=== PATIENT | female | born 1985 | race Caucasian/White ===

== ENCOUNTER 2019-12-20 18:18 | Emergency (ER) | payer MEDICAID ==
--- NOTE | 2019-12-20 18:42 | ED ---
Psychiatric Complaint - HPI Summary HPI Summary: Patient is a 34 y/o F presenting to the ED for a chief complaint of substance use. Per triage, patient was dropped off at [facility] for alcohol intoxication, SI, and HI. Patient admits SI and HI, stating she wants to kill her brother. She reports a suicide attempt 2 years ago by overdosing on fentanyl. She attempted to leave [facility] twice, but insists she cannot be allowed to leave [facility]. She was previously treated for 30 days for substance abuse at [facility] and released on 12/20/19. After leaving the treatment facility, she drank over half a 375 ml bottle of vodka. Patient has back pain from a prior spinal fracture at baseline. She denies taking any other drugs on 12/20/19, but admits a history of taking "all drugs" and tobacco use. Patient notes taking medications for mental health issues, which she states are not working. Medications reviewed. Allergies noted. - History Of Current Complaint Chief Complaint: EDSubstanceAbuse Time Seen by Provider: 12/20/19 18:36 Hx Obtained From: Patient, EMS Onset/Duration: Sudden Onset, Still Present Timing: Constant Severity Initially: Moderate Severity Currently: Moderate Character: Depressed Aggravating Factor(s): Alcohol Use Alleviating Factor(s): Nothing Associated Signs And Symptoms: Positive: Negative Related History: Positive For: Prior Psychiatric Issues Has Suicidal: Reports: Thoughts Has Homicidal: Reports: Thoughts Ingestion History: Type/Name Of Drug - Alcohol, Amount Ingested - Over half of a 375 ml vodka bottle - Allergies/Home Medications Home Medications: Home Medications Acetaminophen [Acetaminophen 8 Hour] 650 mg PO Q6HR PRN 12/20/19 [History Confirmed 12/20/19] Amitriptyline TAB* [Elavil TAB*] 75 mg PO BEDTIME 12/20/19 [History Confirmed ] Bismuth Subsalicylate* [Peptic Relief*] 15 ml PO Q6HR PRN 12/20/19 [History Confirmed 12/20/19] Calcium Carbonate CHEW TAB* [Tums*] 500 mg PO Q6HR PRN 12/20/19 [History Confirmed 12/20/19] Dicyclomine CAP* [Bentyl CAP*] 10 mg PO Q6HR PRN 12/20/19 [History Confirmed ] Docusate CAP* [Colace Cap*] 100 mg PO BID PRN 12/20/19 [History Confirmed ] Escitalopram * [Lexapro 10 mg (NF)] 10 mg PO DAILY 12/20/19 [History Confirmed 12/20/19] Gabapentin CAP(*) [Neurontin 300 CAP(*)] 600 mg PO TID 12/20/19 [History Confirmed 12/20/19] Ibuprofen TAB* [Motrin TAB* 600 MG] 600 mg PO Q6H PRN 12/20/19 [History Confirmed 12/20/19] LORazepam [Lorazepam] 2 mg INJ DAILY PRN 12/20/19 [History Confirmed 12/20/19] Loperamide CAP* [Imodium CAP*] 2 mg PO Q2HR PRN 12/20/19 [History Confirmed ] Magnesium Hydroxide LIQ* [Milk of Magnmakenzie LIQ*] 30 ml PO Q6H PRN 12/20/19 [ History Confirmed 12/20/19] Multivitamins/Minerals TAB* [Thera M Plus TAB*] 1 tab PO DAILY 12/20/19 [ History Confirmed 12/20/19] Nicotine PATCH 21 MG/24 HR* 21 mg TRANSDERM DAILY 12/20/19 [History Confirmed ] QUEtiapine TAB* [Seroquel 100 MG *] 100 mg PO BEDTIME 12/20/19 [History Confirmed 12/20/19] Ranitidine TAB (NF) [Zantac TAB (NF)] 150 mg PO BID 12/20/19 [History Confirmed 12/20/19] Thiamine TAB* [Vitamin B-1 TAB*] 100 mg PO DAILY 12/20/19 [History Confirmed ] Trimethobenzamide IM* [Tigan IM*] 200 mg IM ONCE 12/20/19 [History Confirmed ] busPIRone TAB* [Buspar TAB*] 10 mg PO TID 12/20/19 [History Confirmed 12/20/19] cloNIDine TAB* [Catapres 0.1 MG TAB*] 0.1 mg PO DAILY 12/20/19 [History Confirmed 12/20/19] diPHENhydraMINE PO* [Benadryl PO 25 MG TAB*] 25 mg PO Q6HR PRN 12/20/19 [ History Confirmed 12/20/19] hydrOXYzine HCL TAB* [Atarax TAB 50 MG *] 50 mg PO Q8HR PRN 12/20/19 [History Confirmed 12/20/19] levETIRAcetam TAB* [Keppra TAB*] 1,000 mg PO BID 12/20/19 [History Confirmed ] PMH/Surg Hx/FS Hx/Imm Hx Previously Healthy: Yes Endocrine/Hematology History: Denies: Hx Diabetes Sensory History: Denies: Hx Legally Blind, Hx Deafness Opthamlomology History: Denies: Hx Legally Blind EENT History: Denies: Hx Deafness Psychiatric History: Reports: Hx Suicide Attempt, Hx Substance Abuse - Surgical History Surgical History: None Surgery Procedure, Year, and Place: None Infectious Disease History: No Infectious Disease History: Denies: Traveled Outside the [place] in Last 30 Days - Family History Known Family History: Negative: Diabetes, Renal Disease - Social History Occupation: Unemployed Lives: Alone Hx Substance Use: Yes Substance Use Type: Reports: Other - Several drugs Substance Use Comment - Amount & Last Used: Fentanyl Hx Tobacco Use: Yes Smoking Status (MU): Current Every Day Smoker Type: Cigarettes Review of Systems Positive: Myalgia - Back, at baseline Psychological: Other - Positive SI and HI Positive: Depressed All Other Systems Reviewed And Are Negative: Yes Physical Exam - Summary Physical Exam Summary: Constitutional: Well-developed, Well-nourished, Alert. (-) Distressed Skin: Warm, Dry HENT: Normocephalic; Atraumatic Eyes: Conjunctiva normal Neck: Musculoskeletal ROM normal neck. (-) JVD, (-) Stridor, (-) Tracheal deviation Cardio: Rhythm regular, rate normal, Heart sounds normal; Intact distal pulses; Radial pulses are 2+ and symmetric. (-) Murmur Pulmonary/Chest wall: Effort normal. (-) Respiratory distress, (-) Wheezes, (-) Rales Abd: Soft, (-) tenderness, (-) Distension, (-) Guarding, (-) Rebound Musculoskeletal: (-) Edema Lymph: (-) Cervical adenopathy Neuro: Alert, Oriented x3. Slurred speech. Psych: Tearful. Triage Information Reviewed: Yes Vital Signs On Initial Exam: Initial Vitals Temp Pulse Resp BP Pulse Ox 98.7 F 97 19 138/79 98 12/20/19 18:21 12/20/19 18:21 12/20/19 18:21 12/20/19 18:21 12/20/19 18:21 Vital Signs Reviewed: Yes Procedures - Sedation Patient Received Moderate/Deep Sedation with Procedure: No Diagnostics - Vital Signs Vital Signs Temp Pulse Resp BP Pulse Ox 12/20/19 18:21 98.7 F 97 19 138/79 98 - Laboratory Result Diagrams: 12/20/19 19:10 12/20/19 19:10 Lab Statement: Any lab studies that have been ordered have been reviewed, and results considered in the medical decision making process. Course/Dx - Course Course Of Treatment: Patient is here with alcohol intoxication, suicidal ideation, and homicidal ideation. Patient was just discharged today from a month-long rehabilitation facility. Patient got a bottle of alcohol on the way home home and started drinking it. Patient has an alcohol level of 196. Patient became agitated and required 5 g of Haldol, 50 mg of Benadryl, and 50 g of Versed. Patient was signed out to Dr. Garsia pending sobriety and mental health evaluation - Differential Dx/Clinical Impression Provider Diagnosis: Alcohol intoxication, Homicidal ideation, Suicidal ideation Discharge ED - Sign-Out/Discharge Documenting (check all that apply): Sign-Out Patient Signing out patient TO: Harrison Garsia - Patient is a sign-out at 22:[address] Harrison Garsia MD from Dr. Marlon Pimentel MD at shift change, pending sobriety, mental health evaluation, and disposition. - Discharge Plan Condition: Stable [facility]errals: [facility] [Outside] - Billing Disposition and Condition Condition: STABLE - Attestation Statements Document Initiated by Scribe: Yes Documenting Scribe: Yesica Arauz Provider For Whom Scribe is Documenting (Include Credential): Mralon Pimentel MD Scribe Attestation: Yesica Cedeno, scribed for Marlon Pimentel MD on 12/20/19 at 2141. Scribe Documentation Reviewed: Yes Provider Attestation: The documentation as recorded by the scribeYesica accurately reflects the service I personally performed and the decisions made by , Marlon Pimentel MD Status of Scribe Document: Viewed - Assessment for Patient Restraint Evaluation of the Patient's Immediate Situation: Dr. Harrison Garsia chemically restrained the patient around 21:15 after the patient was displaying aggressive and hostile behavior by cursing and yelling at staff, and attempting to leave [facility]. Patient's Reaction to Intervention: Patient continues to display aggressive and hostile behavior. Patient's Medication and Behavioral Condition: Patient was given Benadryl 50 mg IM, Versed 5 mg IM, and Haldol [address] Harrison Garsia. Evaluate Need for Continued Restraint: Continue
[2019-12-20] MEDS ORDERED: Haloperidol INJ IV/IM* 5 MG/ML AMP IM ONE (18:54)
[2019-12-20] MEDS ORDERED: diPHENhydraMINE IV* 50 MG/ML 1 ml VIAL (BENADRYL) IM ONE (18:55)
[2019-12-20 19:16] LABS: ABS Basophils 0.1 10^3/ul (0-0.2); ABS Eosinophils 0.1 10^3/ul (0-0.6); ABS Lymphocytes 3.5 10^3/ul (1.0-4.8); ABS Monocytes 0.4 10^3/ul (0-0.8); ABS Neutrophils 3.5 10^3/ul (1.5-7.7); Eosinophil % 1.5 %; Hematocrit 42 % (35-47); Hemoglobin 14.3 g/dL (12.0-16.0); Lymphocyte % 46.4 %; Mean Corpuscular HGB Conc 34 g/dL (31-36); Mean Corpuscular Hemoglobin 31 pg (27-31); Mean Corpuscular Volume 90 fL (80-97); Nucleated Red Blood Cells % 0.2; Platelet Count 249 10^3/uL (150-450); Red Blood Count 4.62 10^6 /uL (3.70-4.87); Red Cell Distribution Width 13 % (10-15); White Blood Count 7.6 10^3/uL (3.5-10.8)
[2019-12-20] MEDS ORDERED: Midazolam* 1 MG/ML 2 ML VIAL (2 MG) IM ONE (19:16)
[2019-12-20] MEDS ORDERED: Midazolam concentrated* 5 MG/ML 1 ml VIAL ONE (19:19)
[2019-12-20 19:34] LABS: ALT 85 U/L (7-52); AST 30 U/L (13-39); Albumin 4.3 g/dL (3.2-5.2); Albumin/Globulin Ratio 1.3 (1-3); Alkaline Phosphatase 107 U/L (34-104); Anion Gap 11 mmol/L (2-11); BUN/Creatinine Ratio 16.2 (8-20); Blood Urea Nitrogen 11 mg/dL (6-24); CO2 Carbon Dioxide 23 mmol/L (22-32); Calcium 9.5 mg/dL (8.6-10.3); Chloride 105 mmol/L (101-111); EGFR African American 119.1 (>60); EGFR Non-African American 98.5 (>60); Globulin 3.3 g/dL (2-4); Glucose 120 mg/dL (70-100); Potassium 3.4 mmol/L (3.5-5.0); Sodium 139 mmol/L (135-145); Total Protein 7.6 g/dL (6.4-8.9)
[2019-12-20 19:41] LABS: HCG Pregnancy < 0.60 mIU/mL
[2019-12-20 19:51] LABS: Acetaminophen < 15 mcg/mL; Alcohol 196 mg/dL (<10); Salicylate < 2.50 mg/dL (<30)
--- NOTE | 2019-12-20 22:53 | ED ---
Progress - Progress Note Progress Note: The patient is a sign-out from Dr. Marlon Pimentel MD, to Dr. Harrison Garsia MD , at change of shift at 2200 on 12/20/2019, pending sobriety, MHE, and disposition. Patient is clinically sober at 2300. Patient sleeping during shift, awaiting MHE. The patient is a sign-out from Dr. Harrison Garsia MD, to Dr. Mikael Moreno DO, at change of shift at 0700 on 12/21/2019, pending MHE and disposition. Re-Evaluation - Re-Evaluation First Eval Re-Evaluation Time: 23:00 Comment: Patient clinically sober. Course/Dx - Course Course Of Treatment: The patient is a sign-out from Dr. Marlon Pimentel MD, to Dr. Harrison Garsia MD, at change of shift at 2200 on 12/20/2019, pending sobriety, MHE, and disposition. Patient is clinically sober at 2300. Patient sleeping during shift, awaiting MHE. The patient is a sign-out from Dr. Harrison Garsia MD, to Dr. Mikael Moreno DO, at change of shift at 0700 on 12/21, pending MHE and disposition. - Diagnoses Provider Diagnoses: Alcohol intoxication, Homicidal ideation, Suicidal ideation Discharge ED - Sign-Out/Discharge Documenting (check all that apply): Sign-Out Patient, Receiving Sign-Out Signing out patient TO: Dustin Moreno - Patient is a sign-out to Dr. Mikael Moreno DO, at 0700 on 12/21/2019, pending MHE and disposition. Receiving patient FROM: Marlon Pimentel - Patient is a sign-out from Dr. Marlon Pimentel MD, at 2200 on 12/20/2019, pending sobriety, MHE, and disposition. - Discharge Plan Condition: Stable Referrals: [facility] [Outside] - Billing Disposition and Condition Condition: STABLE - Attestation Statements Document Initiated by Scribe: Yes Documenting Scribe: Jagruti Oliva Provider For Whom Scribe is Documenting (Include Credential): Dr. Harrison Garsia MD Scribe Attestation: I, Jagruti Oliva, scribed for Dr. Harrison Garsia MD on 12/21/19 at 0644. Scribe Documentation Reviewed: Yes Provider Attestation: The documentation as recorded by the scribe, Jagruti Oliva accurately reflects the service I personally performed and the decisions made by me, Dr. Harrison Garsia MD Status of Scribe Document: Viewed Procedures - Sedation Patient Received Moderate/Deep Sedation with Procedure: No
[2019-12-20 22:59] LABS: Urine Appearance Clear; Urine Bilirubin Negative (Negative); Urine Blood Negative (Negative); Urine Color Yellow; Urine Glucose Negative (Negative); Urine Ketones Negative (Negative); Urine Nitrite Negative (Negative); Urine Protein Negative (Negative); Urine Specific Gravity 1.009 (1.010-1.030); Urine Urobilinogen Negative (Negative)
[2019-12-20 23:13] LABS: Urine Benzodiazepine Screen Presumptive Positive (None Detect); Urine Opiates Screen None Detected (None Detect)
[2019-12-21 07:41] VITALS: BP 117/83
--- NOTE | 2019-12-21 10:49 | ED ---
Progress - Progress Note Progress Note: The patient is signed out from Dr. Garsia upon shift change 12/21/2019 07:00 awaiting psychiatric evaluation and pending disposition. Re-Evaluation - Re-Evaluation First Eval Re-Evaluation Time: 10:46 Comment: Psychiatric clinical professor reviewed case with Dr. Blank, psychiatry. They will discharge the patient Course/Dx - Course Course Of Treatment: The patient is signed out from Dr. Garsia upon shift change 12/21/2019 07:00 awaiting psychiatric evaluation and pending disposition. Psychiatric clinical professor reviewed case with Dr. Blank, psychiatry. They will discharge the patient. - Diagnoses Provider Diagnoses: Depressive disorder, Homelessness Discharge ED - Sign-Out/Discharge Documenting (check all that apply): Patient Departure - Discharge Plan Condition: Stable Disposition: HOME Referrals: [facility] [Other] (YOU ARE BEING REFERRED TO [facility] FOR [facility]) [facility] [Outside] - Billing Disposition and Condition Condition: STABLE Disposition: Home - Attestation Statements Document Initiated by Scribe: Yes Documenting Scribe: Ashley Salomon Provider For Whom Scribe is Documenting (Include Credential): Mikael Moreno DO Scribe Attestation: IAshley, benjiibed for Mikael Moreno DO on 12/21/19 at 1151. Scribe Documentation Reviewed: Yes Provider Attestation: The documentation as recorded by the benjiibAshley blevins accurately reflects the service I personally performed and the decisions made by , Mikael Moreno DO Status of Scribe Document: Viewed
== END 2019-12-21 11:25 | disposition home or self-care (01) ==
LOC: ED 18:18
DX: R45.851 Suicidal ideations (principal); R45.850 Homicidal ideations; F32.9 Major depressive disorder, single episode, unspecified; F10.929 Alcohol use, unspecified with intoxication, unspecified; Z59.0 Homelessness; F17.210 Nicotine dependence, cigarettes, uncomplicated; Z79.899 Other long term (current) drug therapy
CPT/HCPCS: 36415; 80053; 80307; 80320; 80329; 81003; 84702; 85025; 96372; 99285; G0480; J1200; J1630; J2250

== ENCOUNTER 2020-01-05 11:05 | Emergency (ER) | payer MEDICAID ==
[2020-01-05] MEDS ORDERED: NS 0.9% 1000 ML** 1,000 ML IV ONE (11:40)
[2020-01-05] MEDS ORDERED: Ketorolac INJ* 30 MG/ML 1 ML VIAL IV PUSH ONE (11:40)
[2020-01-05] MEDS ORDERED: Lorazepam PYXIS KEY PRN (11:41)
[2020-01-05] MEDS ORDERED: LORazepam INJ* 2 MG/ML 1 ML VIAL IV PUSH ONE (11:41)
--- NOTE | 2020-01-05 11:46 | ED ---
Complex/Multi-Sys Presentation - HPI Summary HPI Summary: 34 year old F presenting to [facility] complains of bilateral forearm pain, vomiting , abdominal pain, scabs on bilateral lower and upper extremities that started several days ago. She states she is unable to hold things in her arms or hands. She states her body is cramping up. She states she was wearing wrist brace 6 months ago for possible tendinitis. Patient admits to using meth and drinking alcohol prior to arrival. Patient states she last injected meth a couple days ago. She states she has gone through withdrawals before but states that this time is different. She has been staying at a custodial. She states something bit her when she was staying at her friend's house several days ago. She states the scabs are itchy. Patient denies fever, headache, chest pain, shortness of breath , dysuria. The patient rates the pain 9/10 in severity. Symptoms aggravated by nothing. Symptoms alleviated by nothing. Medications reviewed. Hx stomach ulcers. Hx perforated stomach for which she had surgery in [place] 3 years ago. - History Of Current Complaint Chief Complaint: EDAbdPain Time Seen by Provider: 01/05/20 11:29 Hx Obtained From: Patient Onset/Duration: Lasting Days, Still Present Timing: Constant Severity Currently: Severe - 9/10 Aggravating Factor(s): Nothing Alleviating Factor(s): Nothing Associated Signs And Symptoms: Positive: Other - NEG: fever, headache, chest pain, shortness of breath, dysuria - Allergies/Home Medications Allergies/Adverse Reactions: Allergies Allergy/AdvReac Type Severity Reaction Status Date / Time No Known Allergies Allergy Verified 01/05/20 11:54 Home Medications: Home Medications NK [No Home Medications Reported] 01/05/20 [History Confirmed 01/05/20] PMH/Surg Hx/FS Hx/Imm Hx Endocrine/Hematology History: Denies: Hx Diabetes Psychiatric History: Reports: Hx Eating Disorder, Hx Depression, Hx Post Traumatic Stress Disorder, Hx Suicide Attempt, Hx Substance Abuse Denies: Hx Schizophrenia, Hx Bipolar Disorder - Surgical History Surgery Procedure, Year, and Place: perforated stomach, [place] Infectious Disease History: No Infectious Disease History: Denies: Traveled Outside the [place] in Last 30 Days - Family History Known Family History: Negative: Diabetes, Renal Disease - Social History Alcohol Use: Daily Hx Substance Use: Yes Substance Use Type: Reports: Other - Several drugs Substance Use Comment - Amount & Last Used: Fentanyl, meth Hx Tobacco Use: Yes Smoking Status (MU): Current Every Day Smoker Type: Cigarettes Review of Systems Negative: Fever Negative: Chest Pain Negative: Shortness Of Breath Positive: Abdominal Pain, Vomiting Negative: dysuria Positive: Other - bilateral forearm pain Positive: Other - scabs on bilateral lower and upper extremities Negative: Headache All Other Systems Reviewed And Are Negative: Yes Physical Exam - Summary Physical Exam Summary: Constitutional: Well-developed, Well-nourished, Alert. She appears restless Skin: Warm, Dry, multiple excoriations/scabs noted over all four extremities HENT: Normocephalic; Atraumatic Eyes: Conjunctiva normal Neck: Musculoskeletal ROM normal neck. (-) JVD, (-) Stridor, (-) Tracheal deviation Cardio: Rhythm regular, tachycardic, Heart sounds normal; Intact distal pulses; The pedal pulses are 2+ and symmetric. Radial pulses are 2+ and symmetric. (-) Murmur Pulmonary/Chest wall: Effort normal. (-) Respiratory distress, (-) Wheezes, (-) Rales Abd: Soft, epigastric tenderness, (-) Distension, (-) Guarding, (-) Rebound, old surgical scar noted Musculoskeletal: (-) Edema Lymph: (-) Cervical adenopathy Neuro: Alert, Oriented x3 Psych: Mood and affect Normal Triage Information Reviewed: Yes Vital Signs On Initial Exam: Initial Vitals Temp Pulse Resp BP Pulse Ox 97.6 F 101 18 108/60 95 01/05/20 11:06 01/05/20 11:06 01/05/20 11:06 01/05/20 11:06 01/05/20 11:06 Vital Signs Reviewed: Yes Procedures - Sedation Patient Received Moderate/Deep Sedation with Procedure: No Diagnostics - Vital Signs Vital Signs Temp Pulse Resp BP Pulse Ox 01/05/20 11:06 97.6 F 101 18 108/60 95 - Laboratory Result Diagrams: 01/05/20 11:56 01/05/20 11:56 Lab Statement: Any lab studies that have been ordered have been reviewed, and results considered in the medical decision making process. Re-Evaluation - Re-Evaluation First Eval Re-Evaluation Time: 14:00 Comment: group social worker states patient will be referred to [facility] for follow up Complex Multi-Symp Course/Dx Course Of Treatment: 34 y/o F presents with bilateral forearm pain, vomiting, abdominal pain, scabs on bilateral lower extremities that started several days ago. Patient admits to using meth and drinking alcohol prior to arrival. Patient states she last injected meth a couple days ago. She states she has gone through withdrawals before but states that this time is different. She has been staying at a custodial. She states something bit her when she was staying at her friend's house several days ago. She states the scabs are itchy. Hx stomach ulcers. Hx perforated stomach for which she had surgery in [place] 3 years ago. Upon physical exam, the patient appears restless. She is tachycardic. No murmur. She has epigastric tenderness. Non-distended. Old surgical scar noted. She has multiple excoriations/scabs noted over all four extremities. Bloodwork results with no significant abnormalities except for gluocse 103, magenisum 1.7 , lipase <10. Alcohol <10. In the ED course, the patient was given Toradol, Ativan, normal saline fluids, Maalox and lidocaine PO. mold release worker met with patient and referred patient to [facility] for follow up. Patient ate a meal in the ED, feels well for discharge. Given follow-up resources as noted. Patient will be discharged home with follow up from [facility] in 5 days and [facility] in 2-3 days. Patient was instructed to return to Emergency Department for new or worsening symptoms. Patient understands and is agreeable to this plan. - Diagnoses Provider Diagnoses: Polysubstance abuse, Abdominal pain Discharge ED - Sign-Out/Discharge Documenting (check all that apply): Patient Departure - Discharge Plan Condition: Stable Disposition: HOME Patient Education Materials: Polysubstance Abuse (ED) Referrals: [facility],. [Z.BUSINESS, APPLICATION, OTHER] - 5 Days [facility] [Outside] - 2 Days Additional Instructions: Follow up with [facility] in 2-3 days. Follow up with [facility] in 5 days. Return to the Emergency Department for new or worsening symptoms. - Billing Disposition and Condition Condition: STABLE Disposition: Home - Attestation Statements Document Initiated by Scribe: Yes Documenting Scribe: Ashley Salomon Provider For Whom Scribe is Documenting (Include Credential): Mikael Moreno, Scribe Attestation: I, Ashley Salomon, scribed for Mikael Moreno DO on 01/05/20 at 1828. Scribe Documentation Reviewed: Yes Provider Attestation: The documentation as recorded by the scribe, Ashley Salomon accurately reflects the service I personally performed and the decisions made by me, Mikael Moreno DO Status of Scribe Document: Viewed
[2020-01-05 12:10] LABS: ABS Eosinophils 0.1 10^3/ul (0-0.6); ABS Lymphocytes 2.2 10^3/ul (1.0-4.8); ABS Monocytes 0.4 10^3/ul (0-0.8); ABS Neutrophils 2.9 10^3/ul (1.5-7.7); Eosinophil % 1.4 %; Hematocrit 37 % (35-47); Hemoglobin 12.8 g/dL (12.0-16.0); Lymphocyte % 39.4 %; Mean Corpuscular HGB Conc 35 g/dL (31-36); Mean Corpuscular Hemoglobin 31 pg (27-31); Mean Corpuscular Volume 88 fL (80-97); Mean Platelet Volume 9.1 fL (7.4-10.4); Nucleated Red Blood Cells % 0.2; Platelet Count 232 10^3/uL (150-450); Red Blood Count 4.15 10^6 /uL (3.70-4.87); Red Cell Distribution Width 13 % (10-15); White Blood Count 5.7 10^3/uL (3.5-10.8)
[2020-01-05] MEDS ORDERED: Lidocaine 2% VISCOUS* 15 ML UDC PO ONE (12:16)
[2020-01-05] MEDS ORDERED: Al Hydrox/Mg Hydrox/Simet LIQ* 30 ML UDC PO ONE (12:16)
[2020-01-05 12:31] LABS: HCG Pregnancy < 0.60 mIU/mL
[2020-01-05 12:34] LABS: ALT 25 U/L (7-52); AST 24 U/L (13-39); Albumin/Globulin Ratio 1.3 (1-3); Alkaline Phosphatase 90 U/L (34-104); Anion Gap 7 mmol/L (2-11); BUN/Creatinine Ratio 16.7 (8-20); Blood Urea Nitrogen 11 mg/dL (6-24); CO2 Carbon Dioxide 27 mmol/L (22-32); Calcium 9.1 mg/dL (8.6-10.3); Chloride 104 mmol/L (101-111); EGFR African American 123.3 (>60); EGFR Non-African American 101.9 (>60); Globulin 3.2 g/dL (2-4); Glucose 103 mg/dL (70-100); Magnesium 1.8 mg/dL (1.9-2.7); Potassium 3.7 mmol/L (3.5-5.0); Sodium 138 mmol/L (135-145); Total Protein 7.2 g/dL (6.4-8.9)
[2020-01-05 12:51] LABS: Alcohol < 10 mg/dL (<10)
[2020-01-05 16:31] VITALS: BP 87/68
== END 2020-01-05 16:33 | disposition home or self-care (01) ==
LOC: ED 11:05
DX: F19.10 Other psychoactive substance abuse, uncomplicated (principal); R10.84 Generalized abdominal pain; R11.10 Vomiting, unspecified; M79.632 Pain in left forearm; M79.631 Pain in right forearm; R23.4 Changes in skin texture; F17.210 Nicotine dependence, cigarettes, uncomplicated
CPT/HCPCS: 36415; 80053; 80320; 83605; 83690; 83735; 84702; 85025; 87040; 96361; 96374; 96375; 99285; A9270-GY; G0480; J1885; J2060